=== PATIENT | male | born 1955 | race Hispanic/Latino ===

== ENCOUNTER 2020-08-04 06:35 | Day surgery (SDC) | payer BC, MEDICARE ==
[2020-08-04] MEDS ORDERED: ASPIRIN EC 325 MG TAB PO ONE (07:10)
[2020-08-04 07:25] LABS: Basophils # (Auto) 0.1 K/mm3 (0.0-0.1); Basophils % (Auto) 0.7 % (0.0-1.8); Eosinophils # (Auto) 0.4 K/mm3 (0.0-0.4); Eosinophils % (Auto) 4.7 % (0.0-4.3); Hematocrit 47.1 % (35.5-45.6); Hemoglobin 16.3 gm/dl (11.8-15.2); Lymphocytes # (Auto) 1.7 K/mm3 (1.2-5.4); Lymphocytes % (Auto) 21.4 % (13.4-35.0); Mean Corpuscular HGB Conc 35 % (32-34); Mean Corpuscular Volume 88 fl (84-94); Monocytes # (Auto) 0.8 K/mm3 (0.0-0.8); Monocytes % (Auto) 10.6 % (0.0-7.3); Platelet Count 178 K/mm3 (140-440); Red Blood Count 5.36 M/mm3 (3.65-5.03)
[2020-08-04 07:34] LABS: INR 0.99 (0.87-1.13)
[2020-08-04 07:38] LABS: BUN/Creatinine Ratio 16; Blood Urea Nitrogen 16 mg/dL (9-20); Calcium 9.5 mg/dL (8.4-10.2); Hemolysis Index 5
[2020-08-04] MEDS ORDERED: SODIUM CHLORIDE 0.9% 500 ML 500 ML IV SCH (08:00)
[2020-08-04] MEDS ORDERED: NITROGLYCERIN SYRINGE 3 ML ONE (08:06)
[2020-08-04] MEDS: MIDAZOLAM 2 MG/2 ML INJ ONE ×2 (08:35→08:39)
[2020-08-04] MEDS: fentaNYL 100 MCG/2 ML INJ ONE ×2 (08:35→08:39)
[2020-08-04] MEDS: HEPARIN/NS 5000 UNIT/500ML 1,000 ML IR ONE ×2 (08:36→08:37)
[2020-08-04] MEDS: LIDOCAINE (2%) 20 MG/1 ML VIAL 20 ML MDV INFILTRATI ONE ×2 (08:36→08:43)
[2020-08-04] MEDS: VERAPAMIL 5 MG/2 ML INJ ONE ×2 (08:38→08:45)
[2020-08-04] MEDS: HEPARIN 10,000 UNITS/10 ML VIAL ONE ×2 (08:38→08:45)
--- NOTE | 2020-08-04 09:40 | Cardiac Catherization Report ---
CARDIAC CATHETERIZATION INDICATION FOR PROCEDURE: The patient is a very pleasant 64-year-old gentleman who presents here with recurrent chest pain, history of STEMI 6 years ago, abnormal stress test, referred for left heart catheterization. Risks, benefits, and potential alternatives explained at length prior to obtaining informed consent. PROCEDURE IN DETAIL: The patient was brought to catheterization lab in a post-absorptive state, prepped and draped in a sterile fashion. Orion's test remains normal. A 2 mL of 2% lidocaine was used to anesthetize the right wrist. A standard 6-Cambodian hydrophilic sheath used to cannulate the right radial artery via modified Seldinger technique. All exchanges performed to exchange a J-tip guidewire. JL3.5 catheter was used to engage the left main. No dampening or ventricularization. Cineangiography performed in all projections. JR4 catheter was used to cross the aortic valve under fluoroscopic guidance. Left ventriculography performed in 30 [place] and 30 [place] projections via hand injections, catheter flushed. Manual pullback performed with continuous pressure monitoring. Catheter used to engage the right coronary. No dampening or ventricularization. Cineangiography performed in all projections. Next, catheter removed from the body of the wire, sheath removed. Manual pressure used to achieve hemostasis. DATA: Aortic pressure is 120/70, LV pressure is 120, LVP of 12 mmHg. Left ventriculography reveals normal systolic performance with estimated ejection fraction of 50-55%. No evidence of aortic stenosis. CORONARY ANATOMY: This is a left dominant system. Right coronary is a small nondominant vessel. There is a 60-70% stenosis in this vessel, but is less than 2 mm and very small right coronary. Left main without significant disease, bifurcates left anterior descending and left circumflex. Left circumflex, moderate sized vessel, gives off a left PDA, scattered luminal irregularities, 25% stenosis in the mid segment, but no discrete obstructive stenoses identified. Ramus intermedius is present. No significant disease. There is a mild ostial lesion. LAD is a moderate sized vessel, courses anterior intergroove, wraps around the apex. Stent in the proximal LAD is widely patent. A 10-20% in-stent restenosis is noted with ELIZABETH 3 flow, no obstructive disease noted. CONCLUSIONS: 1. [id number] nonobstructive disease with patent proximal left anterior descending stent and small vessel disease noted in the ____ nondominant right coronary. 2. Left dominant system. 3. Preserved left ventricular systolic response with estimated ejection fraction at 50-55%. 4. No evidence of aortic stenosis. At this point, we will optimize medical therapy, add Ranexa. He is clinically stable, no chest pain. Standard radial care, results discussed with his via telephone. He will follow up with me in the office, stable cardiac status. JOB# [id number]/[id number]
--- NOTE | 2020-08-04 09:53 | Short Stay Summary ---
Short Stay Documentation Date of service: 08/04/20 - History H&P: obtained from office - Allergies and Medications Current Medications: Allergies Tetanus Vaccines and Toxoid Adverse Reaction (Verified 08/04/20 07:10) Unknown Home Medications Medication Instructions Recorded Confirmed Last Taken Type Aspirin [Aspirin BABY CHEW TAB] 81 mg PO QDAY 08/04/20 08/04/20 08/03/20 History Ranolazine [Ranexa] 500 mg PO BID #120 tab.er.12h 08/04/20 Unknown Rx Rosuvastatin Calcium [Crestor] 10 mg PO 08/04/20 08/03/20 History Tamsulosin [Flomax] 0.4 mg PO QDAY 08/04/20 08/04/20 08/03/20 History Active Medications Sodium Chloride (Nacl 0.9% 500 Ml) 500 mls @ 50 mls/hr IV DIRECT EDUARDA Stop: 08/04/20 17:59 Last Admin: 08/04/20 08:13 Dose: 50 mls/hr Documented by: - Brief post op/procedure progress note Date of procedure: 08/04/20 Pre-op diagnosis: CAD Post-op diagnosis: same Procedure: [facility] - see dictated cath report Anesthesia: local Estimated blood loss: none Condition: stable - Disposition Condition at discharge: Good Disposition: DC-01 TO HOME OR SELFCARE - Discharge Diagnoses (1) Coronary artery disease Status: Chronic (2) Stented coronary artery Status: Chronic Short Stay Discharge Plan Activity: advance as tolerated Diet: low fat, low cholesterol, low salt Wound: open to air, keep clean and dry, per your surgeon's advice Follow up with: JUAN ANTONIO FLORES MD [Primary Care Provider] - 7 Days Prescriptions: Ranolazine [Ranexa] 500 mg PO BID #120 tab.er.12h
[2020-08-04 11:32] VITALS: BP 118/74
== END 2020-08-04 12:15 | disposition home or self-care (01) ==
LOC: CATHLABREC 06:35
PROVIDERS: ATTEND Internal Medicine
DX: R07.89 Other chest pain (principal); R94.39 Abnormal result of other cardiovascular function study; I25.10 Atherosclerotic heart disease of native coronary artery without angina pectoris; I25.2 Old myocardial infarction; E78.00 Pure hypercholesterolemia, unspecified; Z79.82 Long term (current) use of aspirin; Z79.899 Other long term (current) drug therapy; Z88.8 Allergy status to other drugs, medicaments and biological substances; Z95.5 Presence of coronary angioplasty implant and graft; Z98.41 Cataract extraction status, right eye; Z98.42 Cataract extraction status, left eye; Z98.890 Other specified postprocedural states
CPT/HCPCS: 36415; 80048; 85025; 85610; 93005; 93458; 99156; 99157; C1894; J1644; J2250; J3010; J7040; Q9967

== ENCOUNTER 2021-02-10 13:21 | Outpatient (CLI) | payer BC, MEDICARE ==
--- NOTE | 2021-02-10 15:09 | Ultrasound Report ---
LIMITED RUQ ABDOMINAL ULTRASOUND INDICATION: EVAL. FOR GALLSTONES. COMPARISON: CT abdomen/pelvis from 07/09/2014. FINDINGS: Pancreas: Visualized portions show no significant abnormality. Abdominal Aorta: Normal size. IVC: No significant abnormality. Liver: The liver measures 14.9 cm in length. Mildly echogenic parenchyma compared to the right renal cortex. Normal hepatopedal blood flow in the main portal vein. Gallbladder: Gallstones measuring 1.1 cm the gallbladder neck with mild wall thickening measuring up to 5 mm. Bile ducts: No significant abnormality. Common bile duct measures 6 mm. Right kidney: No significant abnormality visualized.. Free fluid: None. Additional Findings: None. IMPRESSION: 1. Gallbladder stone at the neck with mild wall thickening but no sonographic Bower sign at this kelley e. Correlate with exam findings for potential evolving cholecystitis. Signer Name: Wayne Tinsley MD Signed: 02/10/2021 3:04 PM Workstation Name: [id number]
== END 2021-02-10 13:22 | disposition home or self-care (01) ==
LOC: US 13:21
PROVIDERS: ATTEND Internal Medicine
DX: K80.20 Calculus of gallbladder without cholecystitis without obstruction (principal)
CPT/HCPCS: 76705